=== PATIENT | male | born 1950 | race Hispanic/Latino ===

== ENCOUNTER 2017-12-31 06:49 | Day surgery (SDC) | payer OTHER, MEDICARE ==
[2017-12-29 15:34] VITALS: BP 138/81
[2017-12-29 15:35] LABS: BASOPHILS % (AUTO) 1.4 % (0.0-5.0); EOSINOPHILS % (AUTO) 2.5 % (0.0-8.0); HEMATOCRIT 42.3 % (42-54); LYMPHOCYTES % (AUTO) 29.5 % (21.0-51.0); MEAN CORPUSCULAR HGB CONC 35.9 g/dL (32.0-36.0); MEAN CORPUSCULAR VOLUME 86.2 fL (79-99); MONOCYTES % (AUTO) 7.2 % (3.0-13.0); NEUTROPHILS % (AUTO) 59.4 % (40.0-77.0); PLATELET COUNT (AUTO) 277 K/uL (130-400); RED BLOOD CELL COUNT(AUTO) 4.91 MIL/uL (4.50-6.20); RED CELL DISTRIBUTION WIDTH 13.6 % (11.0-15.5); WHITE BLOOD COUNT (AUTO) 6.7 K/uL (4.8-10.8)
[2017-12-29 15:43] LABS: CREATININE 0.9 mg/dL (0.5-1.5); POTASSIUM 3.6 mmol/L (3.5-5.1)
[~2017-12-31] VITALS: Ht 167.6 cm; Wt 73.1 kg
[2017-12-31] VITALS (21 sets, daily range): BP systolic 103–141; BP diastolic 61–82
[~2017-12-31 06:49] MED LIST: DUTA0.5C17 PO; ENAL10TA PO; METF850T2 PO; OMEP20TA25 PO; TAMS0.4C32 PO
[2017-12-31] MEDS: CEFTRIAXONE SODIUM 1 GM IVP SCH ×2 (07:00→10:45)
[2017-12-31] MEDS ORDERED: SODIUM CHLORIDE 0.9% 1000ML 1,000 ML IV ONE (08:07)
[2017-12-31] MEDS ORDERED: MIDAZOLAM HCL 1 MG/ML 2ML VIAL ONE (10:44)
[2017-12-31] MEDS ORDERED: FENTANYL CITRATE PF 50 MCG/1 ML 2ML VIAL ONE ×2 (10:46→12:32)
[2017-12-31] MEDS ORDERED: PROPOFOL 10 MG/ML 20ML VIAL IV ONE (10:46)
[2017-12-31] MEDS ORDERED: EPHEDRINE SULFATE 50 MG/ML AMPULE ONE (11:25)
[2017-12-31] MEDS ORDERED: NEOSTIGMINE 5MG/5ML SYR IV ONE (12:32)
[2017-12-31] MEDS ORDERED: PHENYLEPHRINE HCL 10 MG/ML 1ML VIAL IV ONE (12:32)
[2017-12-31] MEDS ORDERED: LIDOCAINE PF 2% 5ML ABBOJECT ONE (12:32)
[2017-12-31] MEDS ORDERED: LIDOCAINE HCL 2% JELLY 5 ML ONE (12:32)
[2017-12-31] MEDS ORDERED: ONDANSETRON HCL 4 MG/2 ML VIAL ONE ×2 (12:32→13:37)
[2017-12-31] MEDS ORDERED: ESMOLOL HCL 10 MG/ML 10 ML VIAL ONE (12:37)
[2017-12-31] MEDS ORDERED: OPIUM/BELLADONNA ALKALOIDS 1 EACH SUPP.RECT RC ONE (12:52)
[2017-12-31] MEDS ORDERED: PHENAZOPYRIDINE HCL 200 MG TABLET ONE (14:45)
== END 2017-12-31 15:05 | disposition home or self-care (01) ==
LOC: DAH 06:49
PROVIDERS: ATTEND Urology
DX: N21.0 Calculus in bladder (principal); R33.9 Retention of urine, unspecified; Z79.899 Other long term (current) drug therapy; E11.9 Type 2 diabetes mellitus without complications; I10 Essential (primary) hypertension; K21.9 Gastro-esophageal reflux disease without esophagitis; Z79.84 Long term (current) use of oral hypoglycemic drugs; Z87.891 Personal history of nicotine dependence; R00.1 Bradycardia, unspecified
CPT/HCPCS: 36415; 52318; 80048; 82948 ×2; 85025; 93005; A4218; A4340; A4354; A4358; A4510; A4600; J0696; J2001; J2250; J2370; J2405 ×2; J2704; J2710; J3010 ×2; J3490 ×2; J7030 ×2

== ENCOUNTER 2017-12-31 18:21 | Emergency (ER) | payer OTHER, MEDICARE ==
[2017-12-31] MEDS ORDERED: ASPIRIN 325 MG TABLET ONE (18:42)
[2017-12-31 18:46] LABS: BASOPHILS % (AUTO) 0.3 % (0.0-5.0); HEMATOCRIT 42.1 % (42-54); LYMPHOCYTES % (AUTO) 7.4 % (21.0-51.0); MEAN CORPUSCULAR HEMOGLOBIN 30.6 pg (27.0-33.0); MEAN CORPUSCULAR HGB CONC 35.3 g/dL (32.0-36.0); MEAN CORPUSCULAR VOLUME 86.7 fL (79-99); MONOCYTES % (AUTO) 4.1 % (3.0-13.0); NEUTROPHILS % (AUTO) 88.2 % (40.0-77.0); PLATELET COUNT (AUTO) 274 K/uL (130-400); RED BLOOD CELL COUNT(AUTO) 4.86 MIL/uL (4.50-6.20); RED CELL DISTRIBUTION WIDTH 13.8 % (11.0-15.5); WHITE BLOOD COUNT (AUTO) 14.8 K/uL (4.8-10.8)
[2017-12-31 19:00] LABS: INR 1.03 (0.85-1.15); PARTIAL THROMBOPLASTIN TIME 24.7 SEC (26.3-35.5); POTASSIUM 3.6 mmol/L (3.5-5.1); PROTHROMBIN TIME 10.8 SEC (9.6-11.6)
[2017-12-31 19:15] LABS: ALBUMIN 3.8 g/dL (3.5-5.0); BILIRUBIN,TOTAL 0.7 mg/dL (0.2-1.0); CREATINE KINASE MB 1.1 ng/mL (0.5-3.6); TOTAL PROTEIN, SERUM 6.9 g/dL (6.0-8.3)
[2017-12-31] MEDS ORDERED: KETOROLAC TROMETHAMINE 30MG/ML ONE (19:34)
[2017-12-31 20:41] LABS: APPEARANCE,URINE Turbid (CLEAR); BILIRUBIN,URINE Small (NEGATIVE); GLUCOSE, URINE (UA) Negative (NEGATIVE); KETONES,URINE Negative (NEGATIVE); LEUKOCYTE ESTERASE ,URINE Moderate (NEGATIVE); NITRATE,URINE Positive (NEGATIVE); OCCULT BLOOD,URINE Moderate (NEGATIVE); PROTEIN,URINE 300 (NEGATIVE)
[2017-12-31 20:43] LABS: COLOR,URINE Brown (YELLOW)
[2017-12-31 21:01] LABS: RBC,URINE >100 /HPF (0-1)
[2017-12-31 21:02] LABS: BACTERIA,URINE Few /HPF (None Seen); SQUAMOUS EPITHELIAL CELL,UR None Seen /HPF (0-2)
[2017-12-31] MEDS ORDERED: ONDANSETRON HCL 4 MG/2 ML VIAL ONE (21:22)
[2017-12-31] MEDS ORDERED: MORPHINE SULFATE 4 MG/1ML SYG ONE (21:23)
[2017-12-31] MEDS ORDERED: PHENAZOPYRIDINE HCL 200 MG TABLET ONE (21:47)
[2017-12-31] MEDS ORDERED: OPIUM/BELLADONNA ALKALOIDS 1 EACH SUPP.RECT RC ONE (21:48)
[2017-12-31] MEDS ORDERED: OXYBUTYNIN CHLORIDE 5 MG TABLET ONE (22:18)
== END 2017-12-31 23:41 | disposition home or self-care (01) ==
LOC: EDH 18:21
DX: R07.9 Chest pain, unspecified (principal); R33.9 Retention of urine, unspecified; E11.9 Type 2 diabetes mellitus without complications; I10 Essential (primary) hypertension; E78.5 Hyperlipidemia, unspecified; K21.9 Gastro-esophageal reflux disease without esophagitis; Z98.890 Other specified postprocedural states
CPT/HCPCS: 36415; 71045; 74176; 80053; 81001; 82550; 82553; 83874; 84484 ×2; 85025; 85610; 85730; 93005 ×2; 96374; 96375; 99285; J1885; J2270; J2405

== ENCOUNTER → 2018-05-13 | Outpatient (CLI) | payer OTHER, MEDICARE ==
[~2018-05-13] MED LIST changes: +METF-445 PO; -METF850T2 PO
== END | disposition home or self-care (01) ==
LOC: RAH 11:04
PROVIDERS: ATTEND Internal Medicine
DX: M47.896 Other spondylosis, lumbar region (principal); M48.07 Spinal stenosis, lumbosacral region
CPT/HCPCS: 72100

== ENCOUNTER 2018-05-20 06:30 | Day surgery (SDC) | payer OTHER, MEDICARE ==
[2018-05-19 11:53] VITALS: BP 125/73
[2018-05-19 12:03] LABS: BASOPHILS % (AUTO) 1.4 % (0.0-5.0); EOSINOPHILS % (AUTO) 1.4 % (0.0-8.0); HEMATOCRIT 46.7 % (42-54); LYMPHOCYTES % (AUTO) 34.3 % (21.0-51.0); MEAN CORPUSCULAR HEMOGLOBIN 29.8 pg (27.0-33.0); MEAN CORPUSCULAR HGB CONC 34.3 g/dL (32.0-36.0); MEAN CORPUSCULAR VOLUME 86.9 fL (79-99); MONOCYTES % (AUTO) 8.3 % (3.0-13.0); NEUTROPHILS % (AUTO) 54.6 % (40.0-77.0); NUCLEATED RED BLOOD CELLS 0.1 % (0.0-0.19); PLATELET COUNT (AUTO) 239 K/uL (130-400); RED BLOOD CELL COUNT(AUTO) 5.37 MIL/uL (4.50-6.20); RED CELL DISTRIBUTION WIDTH 13.4 % (11.0-15.5); WHITE BLOOD COUNT (AUTO) 5.9 K/uL (4.8-10.8)
[2018-05-19 12:12] LABS: CREATININE 0.8 mg/dL (0.5-1.5); POTASSIUM 4.2 mmol/L (3.5-5.1)
[2018-05-20] VITALS (18 sets, daily range): BP systolic 118–132; BP diastolic 57–72
[~2018-05-20] VITALS: Ht 170.2 cm; Wt 73.7 kg
[2018-05-20] MEDS: CEFTRIAXONE SODIUM 1 GM IVP SCH ×2 (06:00→08:05)
[~2018-05-20 06:30] MED LIST changes: +ASPI-555 PO; -DUTA0.5C17 PO; +FINA5TAB41 PO
[2018-05-20] MEDS ORDERED: SODIUM CHLORIDE 0.9% 1000ML 1,000 ML IV ONE (06:59)
[2018-05-20] MEDS ORDERED: LIDOCAINE PF 2% 5ML ABBOJECT ONE (07:22)
[2018-05-20] MEDS ORDERED: SUCCINYLCHOLINE CHLORIDE 20 MG/ML 10 ML VIAL ONE (07:22)
[2018-05-20] MEDS ORDERED: PROPOFOL 10 MG/ML 20ML VIAL IV ONE ×2 (07:23→09:23)
[2018-05-20] MEDS ORDERED: ONDANSETRON HCL 4 MG/2 ML VIAL ONE (07:23)
[2018-05-20] MEDS ORDERED: MIDAZOLAM HCL 1 MG/ML 2ML VIAL ONE (07:23)
[2018-05-20] MEDS ORDERED: FENTANYL CITRATE PF 50 MCG/1 ML 2ML VIAL ONE ×3 (07:23→09:25)
[2018-05-20] MEDS ORDERED: DEXAMETHASONE SOD PHOSPHATE 10MG/ML 1ML VIAL ONE (07:23)
[2018-05-20] MEDS ORDERED: PHENYLEPHRINE HCL 10 MG/ML 1ML VIAL IV ONE (08:37)
[2018-05-20] MEDS ORDERED: EPHEDRINE SULFATE 50 MG/ML AMPULE ONE (08:47)
[2018-05-20] MEDS ORDERED: OPIUM/BELLADONNA ALKALOIDS 1 EACH SUPP.RECT RC ONE (09:57)
[2018-05-20] MEDS ORDERED: PHENAZOPYRIDINE HCL 200 MG TABLET ONE (11:00)
== END 2018-05-20 12:22 | disposition home or self-care (01) ==
LOC: DAH 06:30
PROVIDERS: ATTEND Urology
DX: N40.1 Benign prostatic hyperplasia with lower urinary tract symptoms (principal); R39.14 Feeling of incomplete bladder emptying; E11.9 Type 2 diabetes mellitus without complications; I10 Essential (primary) hypertension; K21.9 Gastro-esophageal reflux disease without esophagitis; Z79.899 Other long term (current) drug therapy; Z79.84 Long term (current) use of oral hypoglycemic drugs; Z98.890 Other specified postprocedural states; Z87.891 Personal history of nicotine dependence
CPT/HCPCS: 36415; 52317; 52648; 80048; 82948 ×2; 85025; 88305; 93005; A4218; A4340; A4354; A4358; A4510; A4600; J0330; J0696; J1100; J2001; J2250; J2370; J2405; J2704 ×2; J3010 ×2; J3490; J7030 ×2

== ENCOUNTER → 2018-12-19 | Outpatient (CLI) | payer OTHER, MEDICARE ==
[~2018-12-19] MED LIST changes: -ASPI-555 PO
== END | disposition home or self-care (01) ==
LOC: RAH 08:34
PROVIDERS: ATTEND Internal Medicine
DX: I70.0 Atherosclerosis of aorta (principal); Z87.891 Personal history of nicotine dependence
CPT/HCPCS: 76775

== ENCOUNTER → 2019-07-13 | Outpatient (CLI) | payer OTHER, MEDICARE | END | disposition home or self-care (01) | LOC: RAH 10:57 | PROVIDERS: ATTEND Internal Medicine | DX: M17.11 Unilateral primary osteoarthritis, right knee (principal) | CPT/HCPCS: 73562 ==

== ENCOUNTER 2021-04-28 12:45 | Day surgery (SDC) | payer OTHER, MEDICARE ==
[2021-04-22 12:46] LABS: BASOPHILS % (AUTO) 1.2 % (0.0-5.0); EOSINOPHILS % (AUTO) 1.8 % (0.0-8.0); HEMATOCRIT 44.3 % (42-54); LYMPHOCYTES % (AUTO) 30.5 % (21.0-51.0); MEAN CORPUSCULAR HEMOGLOBIN 30.9 pg (27.0-33.0); MEAN CORPUSCULAR HGB CONC 34.1 g/dL (32.0-36.0); MEAN CORPUSCULAR VOLUME 90.8 fL (79-99); MONOCYTES % (AUTO) 7.8 % (3.0-13.0); NEUTROPHILS % (AUTO) 58.4 % (40.0-77.0); PLATELET COUNT (AUTO) 283 K/uL (130-400); RED BLOOD CELL COUNT(AUTO) 4.88 MIL/uL (4.50-6.20); RED CELL DISTRIBUTION WIDTH 13.2 % (11.0-15.5); WHITE BLOOD COUNT (AUTO) 8.9 K/uL (4.8-10.8)
[2021-04-22 13:01] LABS: CREATININE 0.8 mg/dL (0.5-1.5); POTASSIUM 4.2 mmol/L (3.5-5.1)
[2021-04-25 11:45] VITALS: BP 144/82
[2021-04-28] VITALS (17 sets, daily range): BP systolic 112–150; BP diastolic 53–83
[~2021-04-28] VITALS: Ht 170.2 cm; Wt 77.1 kg
[~2021-04-28 12:45] MED LIST changes: +ASPI-1443 PO; +ATOR20TA65 PO; -ENAL10TA PO; +ENAL20TA18 PO; +METF-444 PO; -METF-445 PO; +VITAMIN D3 PO
[2021-04-28] MEDS ORDERED: 0.9%NACL 1000ML 1,000 ML IV ONE (12:57)
[2021-04-28] MEDS: MEROPENEM 1 GM VIAL IVP PRN ×2 (13:11→15:35)
[2021-04-28] MEDS ORDERED: LIDOCAINE HCL MPF 1% 5ML VIAL ONE (15:21)
[2021-04-28] MEDS ORDERED: ROCURONIUM 10MG/1ML SYR 10 MG/ML ML ONE (15:22)
[2021-04-28] MEDS ORDERED: PROPOFOL 10 MG/ML 20ML VIAL IV ONE (15:22)
[2021-04-28] MEDS ORDERED: MIDAZOLAM HCL 1 MG/ML 2ML VIAL ONE (15:22)
[2021-04-28] MEDS ORDERED: FENTANYL CITRATE PF 50 MCG/1 ML 2ML VIAL ONE (15:22)
[2021-04-28] MEDS ORDERED: OPIUM/BELLADONNA ALKALOIDS 1 EACH SUPP.RECT RC ONE (16:31)
[2021-04-28] MEDS ORDERED: NEOSTIGMINE 5MG/5ML SYR IV ONE (16:38)
[2021-04-28] MEDS ORDERED: GLYCOPYRROLATE 1 MG/5 ML SYRINGE ONE (16:38)
[2021-04-28] MEDS ORDERED: MEPERIDINE-PF 25 MG/ML SYG ONE (17:21)
[2021-04-28] MEDS ORDERED: PHENAZOPYRIDINE HCL 200 MG TABLET ONE (18:01)
== END 2021-04-28 19:00 | disposition home or self-care (01) ==
LOC: DAH 12:45
PROVIDERS: ATTEND Urology
DX: N21.0 Calculus in bladder (principal); Z20.822 Contact with and (suspected) exposure to COVID-19; N30.20 Other chronic cystitis without hematuria; N40.1 Benign prostatic hyperplasia with lower urinary tract symptoms; R33.8 Other retention of urine; E11.9 Type 2 diabetes mellitus without complications; I10 Essential (primary) hypertension; K21.9 Gastro-esophageal reflux disease without esophagitis; Z87.891 Personal history of nicotine dependence; Z98.890 Other specified postprocedural states; Z79.899 Other long term (current) drug therapy; Z79.82 Long term (current) use of aspirin; Z79.84 Long term (current) use of oral hypoglycemic drugs
CPT/HCPCS: 36415; 80048; 82360; 82948; 85025; 87635; 93005; A4340; A4354; C1758; C9803; J2175; J2185; J2250; J2704; J2710; J3010; J3490; J7030

== ENCOUNTER → 2024-01-10 | Outpatient (CLI) | payer OTHER, MEDICARE ==
[~2024-01-10] MED LIST changes: -ASPI-1443 PO; +ENAL-91 PO; -ENAL20TA18 PO; +OMEP20TA20 PO; -OMEP20TA25 PO
== END | disposition home or self-care (01) ==
LOC: RAH 10:11
PROVIDERS: ATTEND Internal Medicine
DX: R19.00 Intra-abdominal and pelvic swelling, mass and lump, unspecified site (principal); I70.90 Unspecified atherosclerosis
CPT/HCPCS: 76700

== ENCOUNTER → 2024-08-16 | Outpatient (CLI) | payer OTHER, MEDICARE ==
--- NOTE | 2024-08-16 15:35 | HMCIMG ---
Exam: NONCONTRAST CT BRAIN REASON: ACUTE SINUSITIS, UNSPECIFIED. COMPARISON: None. TECHNIQUE: Images are obtained from vertex to the skull base. The exam was performed without IV contrast. FINDINGS: There is normal appearing brain parenchyma. There are no focal mass lesions. There is is no evidence of intracranial hemorrhage or acute stroke. Ventricles and sulci appear normal. Posterior fossa and brainstem structures are unremarkable. Paranasal sinuses and remaining extracranial soft tissues appear normal as well. IMPRESSION: 1. Normal noncontrast CT brain. CT was performed with one or more following dose reduction techniques: automated exposure control, adjustment of the mA and kv according to patient's size, or use of a iterative reconstruction technique.
--- NOTE | 2024-08-16 15:38 | HMCIMG ---
CT MAXILLOFACIAL W/O CONTRAST REASON: ACUTE SINUSITIS, UNSPECIFIED COMPARISON: None TECHNIQUE: Axial images are obtained through the paranasal sinuses with bone and soft tissue window presentation. Sagittal and coronal reconstruction images were then performed. FINDINGS: There is diffuse moderate broad-based right to left deviation of the nasal septum. There is a khadar bullosa in the right middle turbinate. There are diffusely prominent turbinates narrowing both nasal passages. There is conventional ostiomeatal complex anatomy. There is no some minimal mucosal thickening in both maxillary sinuses. Ethmoid, sphenoid and frontal sinuses appear clear. IMPRESSION: 1. Deviated nasal septum along with hypertrophic turbinates causing narrowing of both nasal passages. 2. Mild mucosal thickening in both maxillary sinuses.
== END | disposition home or self-care (01) ==
LOC: RAH 11:53
PROVIDERS: ATTEND Internal Medicine
DX: J34.2 Deviated nasal septum (principal); J34.89 Other specified disorders of nose and nasal sinuses; J01.90 Acute sinusitis, unspecified; D65 Disseminated intravascular coagulation [defibrination syndrome]; R51.9 Headache, unspecified
CPT/HCPCS: 70450; 70486

== ENCOUNTER → 2024-11-13 | Outpatient (CLI) | payer OTHER, MEDICARE ==
--- NOTE | 2024-11-13 13:20 | HMCIMG ---
Knee 2 views- AP weight bearing, lateral- right Clinical Information: PAIN OF RIGHT KNEE JOINT Comparison: None Findings: There is superior patellar osteophytosis. No other degenerative changes are seen. No acute fractures are seen. The soft tissues appear normal. Impression: Patellar osteophyte.
== END | disposition home or self-care (01) ==
LOC: RAH 11:35
PROVIDERS: ATTEND Internal Medicine
DX: M25.761 Osteophyte, right knee (principal); M25.561 Pain in right knee
CPT/HCPCS: 73562